=== PATIENT | male | born 1990 | race Two or more races ===

== ENCOUNTER 2024-08-13 12:03 | Emergency (ER) | payer OTHER ==
[~2024-08-13] VITALS: Ht 182.9 cm; Wt 95.3 kg
[2024-08-13 12:17] VITALS: BP 140/80; O2SAT 100
[2024-08-13] MEDS ORDERED: TETANUS & DIPHTHERIA TOX,ADULT 0.5 ML VIAL IM ONE (15:15)
[2024-08-13] MEDS ORDERED: CEFTRIAXONE SODIUM 500 MG VIAL IM ONE (15:15)
== END 2024-08-13 15:55 | disposition home or self-care (01) ==
LOC: ER 12:04
DX: S61.322A Laceration with foreign body of right middle finger with damage to nail, initial encounter (principal); W45.8XXA Other foreign body or object entering through skin, initial encounter; Y93.89 Activity, other specified; Y92.89 Other specified places as the place of occurrence of the external cause; Y99.8 Other external cause status